=== PATIENT | male | born 1945 | race Caucasian/White ===

== ENCOUNTER 2016-08-22 11:13 | Outpatient (CLI) | payer BC ==
[~2016-08-22 11:13] MED LIST: ATORVASTATIN CA10 MG PO; CARAFATE EQUIVAL1 GM PO; CERAVE TOP; DEPAKOTE ER500 MG PO; DILANTIN100 MG PO; EXCEDRIN EXTRA1 TAB PO; KEPPRA1000 MG PO; PRILOSEC20 MG PO; TAMSULOSIN HCL0.4 MG PO; TEMOVATE 0.05% TOP; TUMS500 MG PO
--- NOTE | 2016-08-22 12:20 | DIAGNOSTIC IMAGING REPORT ---
PROCEDURE: XR RIBS UNILATERAL - LEFT INDICATION: LEFT SIDE TECHNIQUE: Two views of the left ribs with single PA view chest. COMPARISON: None. FINDINGS: LEFT RIBS: There is a fracture of the left seventh rib. IMPRESSION: 1. Fracture of the left seventh rib with minimal displacement.
--- NOTE | 2016-08-22 12:23 | DIAGNOSTIC IMAGING REPORT ---
PROCEDURE: XR STERNUM INDICATION: LEFT SIDE PAIN, STERNUM PAIN TECHNIQUE: Two views of the sternum. COMPARISON: Left rib films same date FINDINGS: No evidence of a sternal fracture. IMPRESSION: 1. No evidence of a sternal fracture.
== END 2016-08-22 23:00 ==
LOC: XR SRH 11:13
DX: S22.32XA Fracture of one rib, left side, initial encounter for closed fracture (principal)

== ENCOUNTER 2016-12-05 14:26 | Outpatient (CLI) | payer BC ==
--- NOTE | 2016-12-05 15:08 | DIAGNOSTIC IMAGING REPORT ---
PROCEDURE: XR CERVICAL SPINE 4 OR 5 VIEW INDICATION: NECK PX,CHRONIC TECHNIQUE: Five views. COMPARISON: Cervical spine films 08/21/2013 FINDINGS: The craniocervical junction is intact. The lateral masses of C1 are normally aligned on C2. There appears to be moderate degenerative change at the atlantodental interval. No significant soft tissue swelling. The cervical vertebral bodies are normally aligned without acute fracture. There are moderate to large anterior end plate spurs from the C3-C7, particularly at C5 and C6. There is moderate to severe disc height loss at the C5-6 and C6-7 levels. Dystrophic calcification is present anteriorly at the C4-5 level. Mild uncovertebral joint hypertrophy is seen at nearly every level. There is mild facet arthropathy present throughout the cervical spine. Oblique images demonstrate mild to moderate right-sided foraminal narrowing at the C3-4 level and moderate multilevel left foraminal narrowing from the C3-4 through C6-7, most extensive at C6-7. No suspicious prevertebral soft tissue swelling. Patent airway. Incidental note is made of moderate patchy bilateral carotid bulb atherosclerotic calcification. IMPRESSION: 1. Degenerative disc, end plate, and facet joint changes throughout the cervical spine as described. 2. Most extensive neural foraminal narrowing is present on the left at C6-7 and may cause a left C7 radiculopathy.
== END 2016-12-05 23:00 ==
LOC: XR SRH 14:26
DX: M50.30 Other cervical disc degeneration, unspecified cervical region (principal); M48.02 Spinal stenosis, cervical region

== ENCOUNTER 2017-01-30 10:21 | Outpatient (CLI) | payer BC ==
--- NOTE | 2017-01-31 17:41 | DIAGNOSTIC IMAGING REPORT ---
PROCEDURE: US ECHOCARDIOGRAM INDICATION: Heart murmur TECHNIQUE: This is a comprehensive adult transthoracic echocardiogram. The patient is in sinus rhythm. COMPARISON: None FINDINGS: Left ventricle: Left ventricle is normal in size. Visually there appears to be mild bordering on moderate left ventricular hypertrophy which is concentric. The measurements obtained by the medical research associate, consistent with severe concentric left ventricular hypertrophy but more off axis. There is normal wall motion. Left ventricular ejection fraction is estimated at 70-75% which is normal. Diastolic function difficult to evaluate due to significant mitral regurgitation. Right ventricle: Normal size and function. Left atrium: Mildly dilated with left atrial volume index of 37 ml per meter squared. Right atrium: Normal size. Aortic valve: Trileaflet with mild sclerosis. There is no stenosis. There is trace insufficiency. Mitral valve: The mitral valve appears structurally normal. No prolapse is seen, however there is at least moderate possibly severe mitral regurgitation which is posteriorly directed suggesting anterior leaflet pathology. The effective regurgitant orifice area is calculated at 0.6 cm2 in the mid region volume is 112 ml. These measurements are consistent with severe mitral regurgitation. Pulmonic valve: Normal in structure and function with trace insufficiency. Tricuspid valve: Normal in structure and function with trace insufficiency. Pulmonary artery pressure is estimated at 24 mmHg which is normal. Pericardium: Appears normal without pericardial effusion. Aorta: Ascending aorta is mildly dilated at 3.9 cm in diameter. IMPRESSION: Normal left ventricular ejection fraction Mild bordering on moderate concentric left ventricular hypertrophy Likely severe mitral regurgitation as described above. Consider transesophageal echocardiogram for further evaluation. Trace aortic valve insufficiency. Mildly dilated ascending aorta at 3.9 cm. Consider cardiology consultation for further evaluation of mitral regurgitation and consideration of transesophageal echocardiogram to better define mitral regurgitation and the structure of mitral valve.
== END 2017-01-30 23:00 ==
LOC: US SRH 10:21
DX: I51.7 Cardiomegaly (principal)

== ENCOUNTER 2017-02-07 09:49 | Outpatient (CLI) | payer BC ==
--- NOTE | 2017-02-07 11:17 | DIAGNOSTIC IMAGING REPORT ---
PROCEDURE: CT ABDOMEN WITHOUT CONTRAST INDICATION: ABN LABS TECHNIQUE: Axial scans through the abdomen with coronal and sagittal re-formations. COMPARISON: CT abdomen/pelvis 03/22/2010. FINDINGS: Minor bibasilar scarring. Normal heart size. Liver measures 18 cm with normal appearance. Gallbladder, pancreas, spleen and adrenal glands are normal. Right nephrectomy with normal postoperative appearance. Left renal cortical cyst. Moderate atherosclerosis of the aorta. Normal appendix. 4 cm fat containing midline supraumbilical hernia. Severe L5-S1 disc space narrowing. IMPRESSION: 1. Status post right nephrectomy with normal postoperative appearance 2. 4 cm fat-containing supraumbilical abdominal wall hernia
== END 2017-02-07 23:00 ==
LOC: CT SRH 09:49
DX: R89.9 Unspecified abnormal finding in specimens from other organs, systems and tissues (principal); K43.9 Ventral hernia without obstruction or gangrene; Z90.5 Acquired absence of kidney